=== PATIENT | female | born 1945 | race Caucasian/White ===

== ENCOUNTER 2020-12-18 09:02 | Emergency (ER) | payer MEDICARE, BC ==
[2020-12-18 09:47] VITALS: BP 149/93; PULSE 96
[2020-12-18] MEDS ORDERED: metroNIDAZOLE 500 MG Tab ONE ×2 (10:00→10:49)
--- NOTE | 2020-12-18 10:13 | EDM.PDOC ---
ED HPI GENERAL MEDICAL PROBLEM - General Chief Complaint: General Stated Complaint: loose stools Time Seen by Provider: 12/18/20 10:00 Source of Information: Reports: Patient History Limitations: Reports: No Limitations - History of Present Illness INITIAL COMMENTS - FREE TEXT/NARRATIVE: 75 year old female known patient of HTN ,rheumatoid arthritis , & hypercholesterolemia presented to ED this morning with c/o diarrhea.She reported that she had lower abdominal pain started at 4 o clock followed by 4 loose stools -The pain was dull ache ,3/10 ,located in lower abdomen & non radiating.The stools contains blood in it . denies any fever,N/V ,chest pain ,cough ,dizziness ,headache , Onset: Today, Sudden Onset Date: 12/18/20 Onset Time: 10:00 Duration: Hour(s): (7) Location: Reports: Abdomen Quality: Reports: Dull Improves with: Reports: None Worsens with: Reports: None Associated Symptoms: Reports: Other (loose stools mixed with blood ) Bilateral Lower Pelvic Pain Score (Numeric/FACES): 6 - Related Data Allergies Allergy/AdvReac Type Severity Reaction Status Date / Time Penicillins Allergy Rash Verified 12/18/20 09:19 Home Meds: Home Meds Melatonin 1 mg PO BEDTIME 11/20/14 [History] Simvastatin 20 mg PO DAILY 11/20/14 [History] Tocilizumab [Actemra] 500 mg IV Q30D 11/20/14 [History] Hydroxychloroquine Sulfate [Plaquenil] 200 mg PO BID 01/06/17 [History] Lisinopril/Hydrochlorothiazide [Lisinopril-Hctz 20-25 mg Tab] 1 each PO DAILY 05/15/19 [History] Oxybutynin Chloride [Ditropan Xl] 10 mg PO DAILY 05/15/19 [History] metroNIDAZOLE [metroNIDAZOLE 0.75% Cream] 1 applic TOP BID 05/15/19 [History] Past Medical History HEENT History: Reports: Impaired Vision Cardiovascular History: Reports: High Cholesterol, Hypertension Gastrointestinal History: Reports: Other (See Below) Other Gastrointestinal History: constipation Other Genitourinary History: none 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: Bladder suspension sx Sep 2016 Musculoskeletal History: Reports: Arthritis, Other (See Below) Other Musculoskeletal History: RA Immunologic History: Reports: Immunosuppression Other Immunologic History: Hx RA - Past Surgical History HEENT Surgical History: Reports: None Cardiovascular Surgical History: Reports: None GI Surgical History: Reports: None Female Surgical History: Reports: Other (See Below) Other Female Surgeries/Procedures: Prolapse uterus and bladder repair Musculoskeletal Surgical History: Reports: Other (See Below) Other Musculoskeletal Surgeries/Procedures:: hip replaced Dermatological Surgical History: Reports: None Social & Family History - Family History Family Medical History: No Pertinent Family History - Caffeine Use Caffeine Use: Reports: Coffee Other Caffeine Use: 2.5 cups a day - Recreational Drug Use Recreational Drug Use: No ED ROS GENERAL - Review of Systems Review Of Systems: See Below Constitutional: Reports: No Symptoms HEENT: Reports: No Symptoms Respiratory: Reports: No Symptoms. Denies: Shortness of Breath, Wheezing, Pleuritic Chest Pain Cardiovascular: Reports: No Symptoms Endocrine: Reports: No Symptoms GI/Abdominal: Reports: Abdominal Pain, Bloody Stool, Diarrhea Musculoskeletal: Reports: No Symptoms Skin: Reports: No Symptoms Neurological: Reports: No Symptoms ED EXAM, GENERAL - Physical Exam Exam: See Below Exam Limited By: No Limitations General Appearance: Alert, WD/WN Head: Atraumatic, Normocephalic Neck: Normal Inspection Respiratory/Chest: No Respiratory Distress Cardiovascular: Normal Peripheral Pulses GI/Abdominal: Normal Bowel Sounds, Soft, No Organomegaly, No Distention, No Abnormal Bruit, No Mass Back Exam: Normal Inspection Extremities: Normal Inspection Neurological: Alert, Oriented Course - Vital Signs Text/Narrative:: Vitals monitored labs ordered - I myself review labs K is low 3.1 advise the patient to discuss it with PCP if he can add some K Oral hydration - advise to to take a lot of fluids ,yogurt & banana patient was discharge on Flagyl 500 mg potid for two days . OTC Lomotil for tow days Pt was advised to come back to ER if diarrhea worsens - Last Recorded V/S: Last Vital Signs Temp 99.1 F 12/18/20 09:46 Pulse 96 12/18/20 09:46 Resp 18 12/18/20 09:46 BP 149/93 H 12/18/20 09:46 Pulse Ox 98 12/18/20 09:20 - Orders/Labs/Meds Orders: Active Orders 24 hr Category Date Time Status Hemoccult [Fecal Occult Blood Collection] [RC] Care 12/18/20 09:45 Active ASDIRECTED COMPREHENSIVE METABOLIC PN,CMP [CHEM] Stat Lab 12/18/20 09:44 Ordered UA RFX EDYTA AND CULT IF INDIC [URIN] Stat Lab 12/18/20 09:54 Ordered Departure - Departure Time of Disposition: 10:50 Disposition: Home, Self-Care 01 Clinical Impression: Bloody diarrhea - Discharge Information Referrals: PCP,None [Primary Care Provider] - Forms: ED Department Discharge, ED Summary Discharge Sepsis Event Note (ED) - Evaluation Sepsis Screening Result: No Definite Risk - Focused Exam Vital Signs: Vital Signs Temp Pulse Resp BP Pulse Ox 12/18/20 09:46 99.1 F 96 18 149/93 H 12/18/20 09:20 97.8 F 103 H 18 166/105 H 98 - Problem List & Annotations (1) Bloody diarrhea SNOMED Code(s): 67448576 Code(s): R19.7 - DIARRHEA, UNSPECIFIED Status: Acute Priority: Medium Current Visit: Yes Onset Date: ~12/18/20 (2) Lower abdominal pain SNOMED Code(s): 67476762 Code(s): R10.30 - LOWER ABDOMINAL PAIN, UNSPECIFIED Status: Acute Priority: Medium Current Visit: Yes Onset Date: ~12/18/20 - Assessment/Plan Plan: Drinks plenty of fluids take soft diet like banana ,yogurt Lomotil OTC Flagyl 500 mg potid for two days
== END 2020-12-18 10:50 | disposition home or self-care (01) ==
LOC: LB.ED 09:02
DX: R19.7 Diarrhea, unspecified (principal); E78.00 Pure hypercholesterolemia, unspecified; I10 Essential (primary) hypertension; Z79.899 Other long term (current) drug therapy; Z88.0 Allergy status to penicillin
CPT/HCPCS: 36415; 80053; 81001; 85025; 99283; A9270-GY

== ENCOUNTER 2021-06-24 12:11 | Emergency (ER) | payer MEDICARE, BC ==
[2021-06-24 13:41] VITALS: BP 149/85; PULSE 76
--- NOTE | 2021-06-24 14:25 | EDM.PDOC ---
ED HPI GENERAL MEDICAL PROBLEM - General Chief Complaint: General Stated Complaint: RIGHT LEG LACERATION Time Seen by Provider: 06/24/21 13:45 Source of Information: Reports: Patient History Limitations: Reports: No Limitations - History of Present Illness INITIAL COMMENTS - FREE TEXT/NARRATIVE: Patient presents to the emergency department with a laceration of her right anterior lower leg. Patient states that she was assisting her in pulling nails out of a fence line when the nail remover hit her anterior right grant providing laceration. Patient states she does not believe she would be able to care for this at home, it possibly requiring sutures. Patient denies any other injuries. States she has a medical history significant for rheumatoid arthritis and is on immune therapies for this. Currently be treated for cellulitis of right lower extremity through primary care clinic. Patient denies numbness or tingling distal to injury of right lower extremity. - Related Data Allergies Allergy/AdvReac Type Severity Reaction Status Date / Time Penicillins Allergy Rash Verified 03/28/21 10:27 Home Meds: Home Meds Melatonin 1 mg PO BEDTIME 11/20/14 [History] Simvastatin 20 mg PO DAILY 11/20/14 [History] Tocilizumab [Actemra] 500 mg IV Q30D 11/20/14 [History] Hydroxychloroquine Sulfate [Plaquenil] 200 mg PO BID 01/06/17 [History] Oxybutynin Chloride [Ditropan Xl] 10 mg PO DAILY 05/15/19 [History] metroNIDAZOLE [metroNIDAZOLE 0.75% Cream] 1 applic TOP BID 05/15/19 [History] Losartan [Cozaar] 25 mg PO DAILY 06/24/21 [History] hydroCHLOROthiazide [Hydrochlorothiazide] 25 mg PO DAILY 06/24/21 [History] Past Medical History HEENT History: Reports: Impaired Vision Cardiovascular History: Reports: High Cholesterol, Hypertension Gastrointestinal History: Reports: Other (See Below) Other Gastrointestinal History: constipation Other Genitourinary History: none 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: Bladder suspension sx Sep 2016 Musculoskeletal History: Reports: Arthritis, Other (See Below) Other Musculoskeletal History: RA Immunologic History: Reports: Immunosuppression Other Immunologic History: Hx RA - Past Surgical History HEENT Surgical History: Reports: None Cardiovascular Surgical History: Reports: None GI Surgical History: Reports: None Female Surgical History: Reports: Other (See Below) Other Female Surgeries/Procedures: Prolapse uterus and bladder repair Musculoskeletal Surgical History: Reports: Other (See Below) Other Musculoskeletal Surgeries/Procedures:: hip replaced Dermatological Surgical History: Reports: None Social & Family History - Family History Family Medical History: No Pertinent Family History - Tobacco Use Tobacco Use Status *Q: Never Tobacco User - Caffeine Use Caffeine Use: Reports: Coffee Other Caffeine Use: 2.5 cups a day ED ROS GENERAL - Review of Systems Review Of Systems: Comprehensive ROS is negative, except as noted in HPI. ED EXAM, GENERAL - Physical Exam Exam: See Below Exam Limited By: No Limitations General Appearance: Alert, WD/WN Respiratory/Chest: No Respiratory Distress, No Accessory Muscle Use Cardiovascular: Normal Peripheral Pulses, Regular Rate, Rhythm Peripheral Pulses: 2+: Posterior Tibial (L), Posterior Tibial (R) Extremities: Pedal Edema (Bilateral), Redness (Right lower extremity), Other (Laceration of anterior right lower leg) Neurological: Alert, Oriented, Normal Cognition, No Motor/Sensory Deficits Psychiatric: Normal Affect, Normal Mood Skin Exam: Warm, Dry, Intact ED GENERAL MEDICAL PROCEDURES - Laceration/Wound Repair Right Lower Midline Leg Lac/wound length in cm: 6 Appearance: Stellate ("v" shaped), Clean Anesthetic Type: Local Local Anesthesia - Lidocaine (Xylocaine): 0.5% with EPI Local Anesthetic Volume: 4cc Skin Prep: Chlorhexidine (Hibiciens) Exploration/Debridement/Repair: Wound Explored, In a Bloodless Field, Explored to Base, Minimal Debridement, No Foreign Material Found, Multiple Flaps Aligned Closed with: Sutures, Steri-Strips Suture Size: 5-0 # of Sutures: 13 (12 interrupted; 1 running suture) Suture Type: Nylon, Interrupted, Running Drain Placement: No Sterile Dressing Applied: Nurse Tetanus Status Addressed: Other (up to date 2018) Complications: No Progress/Comments: pt tolerated procedure well. Course - Vital Signs Last Recorded V/S: Last Vital Signs Temp 97.0 F 06/24/21 13:39 Pulse 76 06/24/21 13:39 Resp 16 06/24/21 13:39 BP 149/85 H 06/24/21 13:39 Pulse Ox 96 06/24/21 13:39 Departure - Departure Time of Disposition: 14:11 Disposition: Home, Self-Care 01 Condition: Good Clinical Impression: Leg laceration Qualifiers: Encounter type: initial encounter Laterality: right Qualified Code(s): S81.811A - Laceration without foreign body, right lower leg, initial encounter - Discharge Information *PRESCRIPTION DRUG MONITORING PROGRAM REVIEWED*: Not Applicable *COPY OF PRESCRIPTION DRUG MONITORING REPORT IN PATIENT KATELYNN: Not Applicable Instructions: Laceration Care, Adult Referrals: Miguel Evans MD [Primary Care Provider] - Forms: ED Department Discharge Care Plan Goals: Follow up in clinic 10-14 days for suture removal. watch for signs and symptoms of infection. Use tylenol as needed for pain Sepsis Event Note (ED) - Evaluation Sepsis Screening Result: No Definite Risk - Focused Exam Vital Signs: Vital Signs Temp Pulse Resp BP Pulse Ox 06/24/21 13:39 97.0 F 76 16 149/85 H 96 - Problem List & Annotations (1) Leg laceration SNOMED Code(s): 580318240 Code(s): S81.819A - LACERATION WITHOUT FOREIGN BODY, UNSP LOWER LEG, INIT ENCNTR Status: Acute Qualifiers: Encounter type: initial encounter Laterality: right Qualified Code(s): S81.811A - Laceration without foreign body, right lower leg, initial encounter - Problem List Review Problem List Initiated/Reviewed/Updated: Yes - Assessment/Plan Assessment:: leg laceration plan: suture removal in 10-14 days monitor for signs of infection elevate legs to reduce swelling
== END 2021-06-24 14:10 | disposition home or self-care (01) ==
LOC: LB.ED 12:11
DX: S81.811A Laceration without foreign body, right lower leg, initial encounter (principal); E78.00 Pure hypercholesterolemia, unspecified; I10 Essential (primary) hypertension; Z79.899 Other long term (current) drug therapy; Z88.0 Allergy status to penicillin; W45.0XXA Nail entering through skin, initial encounter
CPT/HCPCS: 12002; 99282-25

== ENCOUNTER 2021-09-19 09:39 | Emergency (ER) | payer MEDICARE, BC ==
--- NOTE | 2021-09-19 10:39 | EDM.PDOC ---
ED HPI GENERAL MEDICAL PROBLEM - General Stated Complaint: RIGHT HAND SKIN TEAR Time Seen by Provider: 09/19/21 10:25 Source of Information: Reports: Patient History Limitations: Reports: No Limitations - History of Present Illness INITIAL COMMENTS - FREE TEXT/NARRATIVE: This patient presents to the emergency department for evaluation of a skin tear. She was reaching into a chest freezer this morning when the lid closed on her. She has a large skin tear to her right wrist. She denies other injuries or concerns today. She is scheduled for a Port-A-Cath flush tomorrow and this will be done today while she is here. Onset: Today, Sudden - Related Data Allergies Allergy/AdvReac Type Severity Reaction Status Date / Time Penicillins Allergy Rash Verified 03/28/21 10:27 Home Meds: Home Meds Melatonin 1 mg PO BEDTIME 11/20/14 [History] Simvastatin 20 mg PO DAILY 11/20/14 [History] Tocilizumab [Actemra] 500 mg IV Q30D 11/20/14 [History] Hydroxychloroquine Sulfate [Plaquenil] 200 mg PO BID 01/06/17 [History] Oxybutynin Chloride [Ditropan Xl] 10 mg PO DAILY 05/15/19 [History] metroNIDAZOLE [metroNIDAZOLE 0.75% Cream] 1 applic TOP BID 05/15/19 [History] Losartan [Cozaar] 25 mg PO DAILY 06/24/21 [History] hydroCHLOROthiazide [Hydrochlorothiazide] 25 mg PO DAILY 06/24/21 [History] Past Medical History HEENT History: Reports: Impaired Vision Cardiovascular History: Reports: High Cholesterol, Hypertension Gastrointestinal History: Reports: Other (See Below) Other Gastrointestinal History: constipation Other Genitourinary History: none 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 2016 Musculoskeletal History: Reports: Arthritis, Other (See Below) Other Musculoskeletal History: RA Immunologic History: Reports: Immunosuppression Other Immunologic History: Hx RA - Past Surgical History HEENT Surgical History: Reports: None Cardiovascular Surgical History: Reports: None GI Surgical History: Reports: None Female Surgical History: Reports: Other (See Below) Other Female Surgeries/Procedures: Prolapse uterus and bladder repair Musculoskeletal Surgical History: Reports: Other (See Below) Other Musculoskeletal Surgeries/Procedures:: hip replaced Dermatological Surgical History: Reports: None Social & Family History - Family History Family Medical History: No Pertinent Family History - Caffeine Use Caffeine Use: Reports: Coffee Other Caffeine Use: 2.5 cups a day Review of Systems - Review of Systems Review Of Systems: Comprehensive ROS is negative, except as noted in HPI. ED EXAM, GENERAL - Physical Exam Exam: See Below Exam Limited By: No Limitations General Appearance: Alert, No Apparent Distress Eye Exam: Bilateral Eye: PERRL Ears: Normal External Exam Nose: Normal Inspection Head: Atraumatic, Normocephalic Neck: Normal Inspection, Supple, Non-Tender, Full Range of Motion Respiratory/Chest: No Respiratory Distress, No Accessory Muscle Use Extremities: Normal Inspection, Normal Range of Motion, Other (Right anterior wrist: 5 cm C-shaped skin tear. Bleeding is controlled. Distal CMS intact. No swelling, discoloration. Patient does have a mild deformity to her wrist related to arthritis; she notes this is unchanged today.) ED TRAUMA PROCEDURES - Laceration/Wound Repair Right Anterior Wrist Lac/Wound Length In cm: 5 Appearance: Superficial Distal NVT: Neuro & Vascular Intact Anesthetic Type: Other (None) Closed With: Steri-Strips (Steri-Strips applied after the application of benzoin. Nonadherent dressing applied.) Course - Re-Assessments/Exams Free Text/Narrative Re-Assessment/Exam: 09/19/21 10:37 This patient presents to the emergency department for evaluation of a skin tear. The wound was evaluated and explored. It was pulled together and held in place with Steri-Strips. A nonadherent dressing was applied and the wound was covered with Coban. She will follow-up with her primary care provider as needed. She is scheduled for a Port-A-Cath flush tomorrow this will be done in the emergency department today while she is here. Nursing will take care of this. Departure - Departure Time of Disposition: 11:00 Disposition: DC/Tfer to Hospice - Home 50 Clinical Impression: Skin tear, Port-A-Cath in place - Discharge Information Referrals: Miguel Evans MD [Primary Care Provider] -
[2021-09-19 16:17] VITALS: BP 159/98; PULSE 97
== END 2021-09-19 10:30 | disposition home or self-care (01) ==
LOC: LB.ED 09:39
DX: S61.511A Laceration without foreign body of right wrist, initial encounter (principal); E78.00 Pure hypercholesterolemia, unspecified; I10 Essential (primary) hypertension; Z88.0 Allergy status to penicillin; Z79.899 Other long term (current) drug therapy; Z95.828 Presence of other vascular implants and grafts; W26.8XXA Contact with other sharp object(s), not elsewhere classified, initial encounter
CPT/HCPCS: 99282; J1642

== ENCOUNTER 2022-03-23 08:39 | Emergency (ER) | payer MEDICARE, BC ==
[2022-03-23 10:34] VITALS: BP 156/101; PULSE 95
== END 2022-03-23 09:50 | disposition home or self-care (01) ==
LOC: LB.ED 08:39
DX: S41.112A Laceration without foreign body of left upper arm, initial encounter (principal); S41.111A Laceration without foreign body of right upper arm, initial encounter; S81.812A Laceration without foreign body, left lower leg, initial encounter; E78.00 Pure hypercholesterolemia, unspecified; I10 Essential (primary) hypertension; Z88.0 Allergy status to penicillin; Z79.899 Other long term (current) drug therapy; W19.XXXA Unspecified fall, initial encounter; Y92.009 Unspecified place in unspecified non-institutional (private) residence as the place of occurrence of the external cause
CPT/HCPCS: 36415; 80048; 85025; 99283

== ENCOUNTER 2022-06-16 07:15 | Emergency (ER) | payer MEDICARE, BC ==
[2022-06-16] MEDS: Ketorolac 30 MG/ML SDV IM ONE (07:59)
[2022-06-16] MEDS ORDERED: Ketorolac 30 MG/ML SDV ONE (08:04)
[2022-06-16 08:07] VITALS: BP 186/78; PULSE 78
[2022-06-16] MEDS: Morphine 2 MG/ML SYRINGE IVPUSH ONE (08:22)
[2022-06-16 08:25] LABS: ESTIMATED GFR 77 mL/min (>60)
[2022-06-16] MEDS ORDERED: Morphine 2 MG/ML SYRINGE ONE (08:29)
[2022-06-16] MEDS: Propofol 200 MG/20 ML SDV IVPUSH SCH ×4 (10:02→10:10)
[2022-06-16] MEDS ORDERED: Orphenadrine 60 MG/2 ML Inj ONE (10:52)
[2022-06-16] MEDS: Morphine 2 MG/ML SYRINGE IVPUSH PRN (11:14)
== END 2022-06-16 11:50 ==
LOC: LB.ED 07:19
DX: S73.005A Unspecified dislocation of left hip, initial encounter (principal); I10 Essential (primary) hypertension; Z88.0 Allergy status to penicillin; Z79.899 Other long term (current) drug therapy; X58.XXXA Exposure to other specified factors, initial encounter
CPT/HCPCS: 27265; 36415; 73501-LT; 73502-LT; 80048; 85025; 85379; 93005; 93010; 96372; 96374; 96376; 99283; 99284-25; A0425; A0429; J1885; J2270; J2704

== ENCOUNTER 2022-06-18 18:50 | Observation (INO) | payer MEDICARE, BC ==
[2022-06-18] MEDS: ceFAZolin 2 GM in Sodium Chloride 0.9% 100 ML IV SCH (20:00)
[2022-06-18] MEDS ORDERED: ceFAZolin 1 GM Vial ONE (20:02)
[2022-06-18] MEDS: HYDROXYCHLOROQUINE SULFATE 200 MG PO SCH (20:12)
[2022-06-18] MEDS: Acetaminophen/Codeine 300-30 MG Tab PO PRN (20:50)
[2022-06-18] MEDS: Non-Formulary Medication 1 Each (Melatonin [Melatonin] 1 MG Tablet) PO SCH (23:12)
[2022-06-18] MEDS ORDERED: Acetaminophen 325 MG Tab PO PRN (23:19)
[2022-06-19] MEDS: ceFAZolin 2 GM in Sodium Chloride 0.9% 100 ML IV SCH ×3 (03:34→19:15)
[2022-06-19] MEDS ORDERED: Non-Formulary Medication 1 Each (Simvastatin [Simvastatin] 20 MG Tablet) PO SCH (08:00)
[2022-06-19] MEDS ORDERED: Non-Formulary Medication 1 Each (Losartan [Cozaar] 25 MG Tablet) PO SCH (08:00)
[2022-06-19] MEDS ORDERED: Hydroxychloroquine 200 MG Tab PO SCH ×2 (08:00→10:00)
[2022-06-19] MEDS ORDERED: OXYBUTYNIN CHLORIDE 10 MG PO SCH (08:00)
[2022-06-19] MEDS ORDERED: Non-Formulary Medication 1 Each (Hydrochlorothiazide [Hydrochlorothiazide] 25 MG Tablet) PO SCH (08:00)
[2022-06-19] MEDS: Enoxaparin 40 MG/0.4 ML Syringe SUBCUT SCH (08:39)
[2022-06-19] MEDS: Losartan 25 MG Tab PO SCH (09:04)
[2022-06-19] MEDS: Hydrochlorothiazide 25 MG Tab PO SCH (09:05)
[2022-06-19] MEDS ORDERED: Potassium Chloride 20 MEQ Tab.ER PO ONE (09:07)
[2022-06-19] MEDS: HYDROXYCHLOROQUINE SULFATE 200 MG PO SCH (19:26)
[2022-06-19] MEDS ORDERED: Simvastatin 20 MG Tab PO SCH ×2 (20:00)
[2022-06-19] MEDS: Acetaminophen/Codeine 300-30 MG Tab PO PRN (21:02)
[2022-06-19] MEDS: Non-Formulary Medication 1 Each (Melatonin [Melatonin] 1 MG Tablet) PO SCH (21:38)
[2022-06-20] MEDS: ceFAZolin 2 GM in Sodium Chloride 0.9% 100 ML IV SCH ×2 (03:00→11:45)
[2022-06-20] MEDS: Enoxaparin 40 MG/0.4 ML Syringe SUBCUT SCH (07:44)
[2022-06-20] MEDS: Hydrochlorothiazide 25 MG Tab PO SCH (07:44)
[2022-06-20] MEDS: Losartan 25 MG Tab PO SCH (07:44)
[2022-06-20] MEDS ORDERED: Potassium Chloride 20 MEQ Tab.ER PO SCH (08:00)
[2022-06-20] MEDS ORDERED: Hydroxychloroquine 200 MG Tab PO SCH (09:15)
[2022-06-20 12:33] VITALS: BP 147/75; PULSE 87
== END 2022-06-20 13:32 | disposition home or self-care (01) ==
LOC: LB.ED 18:50 → LB.MS 19:22 → UNDOADMOB 20:20
PROVIDERS: ADMIT Physician Assistant; ATTEND Physician Assistant
DX: L03.113 Cellulitis of right upper limb (principal); I10 Essential (primary) hypertension; E78.00 Pure hypercholesterolemia, unspecified; M06.9 Rheumatoid arthritis, unspecified; E87.6 Hypokalemia; Z79.899 Other long term (current) drug therapy; Z88.0 Allergy status to penicillin; Z20.822 Contact with and (suspected) exposure to COVID-19
CPT/HCPCS: 36415; 80048; 83605; 85025; 85379; 86140; 96365; 96366; 96372; 96376; 99284-25; A0425; A0429; A9270-GY; G0378; J0690; J1650; J3490; U0002

== ENCOUNTER 2022-12-28 11:33 | Inpatient (IN) | payer MEDICARE, BC ==
[2022-12-28] MEDS ORDERED: ceFAZolin 2 GM in Sodium Chloride 0.9% 50 ML IV ONE (12:38)
[2022-12-28] MEDS ORDERED: cefTRIAXone 2 GM Vial ONE (12:52)
[2022-12-28] MEDS ORDERED: Lidocaine 1% with EPINEPHrine 1:100,000 50 ML MDV INJECT ONE (16:35)
[2022-12-28] MEDS: Melatonin 3 MG Tab PO SCH (20:35)
[2022-12-28] MEDS: Hydroxychloroquine 200 MG Tab PO SCH (20:35)
[2022-12-28] MEDS ORDERED: ceFAZolin 1 GM in Premix Bag 1 BAG IV SCH (22:00)
[2022-12-28] MEDS: ceFAZolin 1 GM in Sodium Chloride 0.9% 50 ML IV SCH (22:45)
[2022-12-29] MEDS: Ibuprofen 400 MG Tab PO PRN ×2 (00:17→20:46)
[2022-12-29] MEDS: ceFAZolin 1 GM in Sodium Chloride 0.9% 50 ML IV SCH ×3 (05:46→22:12)
[2022-12-29] MEDS: Losartan 25 MG Tab PO SCH (07:33)
[2022-12-29] MEDS: Simvastatin 20 MG Tab PO SCH (07:33)
[2022-12-29] MEDS: Hydrochlorothiazide 25 MG Tab PO SCH (07:33)
[2022-12-29] MEDS: Hydroxychloroquine 200 MG Tab PO SCH ×2 (07:34→20:46)
[2022-12-29] MEDS ORDERED: Labetalol 100 MG/20 ML MDV ONE (14:32)
[2022-12-29] MEDS: Melatonin 3 MG Tab PO SCH (20:46)
[2022-12-30] MEDS: ceFAZolin 1 GM in Sodium Chloride 0.9% 50 ML IV SCH ×3 (05:56→22:07)
[2022-12-30] MEDS: Hydrochlorothiazide 25 MG Tab PO SCH (08:19)
[2022-12-30] MEDS: Potassium Chloride 20 MEQ Tab.ER PO SCH ×2 (08:19→19:45)
[2022-12-30] MEDS: Losartan 25 MG Tab PO SCH (08:20)
[2022-12-30] MEDS: Hydroxychloroquine 200 MG Tab PO SCH ×2 (08:20→19:45)
[2022-12-30] MEDS: Simvastatin 20 MG Tab PO SCH (08:20)
[2022-12-30] MEDS ORDERED: Acetaminophen 325 MG Tab ONE (17:17)
[2022-12-30] MEDS: Lactobacillus Acidophilus/Lactobacillus Sporogenes (Probiotic) Tab PO SCH (19:45)
[2022-12-30] MEDS: Ibuprofen 400 MG Tab PO PRN (20:55)
[2022-12-30] MEDS: Melatonin 3 MG Tab PO SCH (20:55)
[2022-12-30] MEDS: Metoprolol Tartrate 25 MG Tab PO SCH (22:09)
[2022-12-31] MEDS: ceFAZolin 1 GM in Sodium Chloride 0.9% 50 ML IV SCH ×3 (06:06→22:07)
[2022-12-31] MEDS: Potassium Chloride 20 MEQ Tab.ER PO SCH ×2 (07:50→20:33)
[2022-12-31] MEDS: Hydroxychloroquine 200 MG Tab PO SCH ×2 (07:51→20:33)
[2022-12-31] MEDS: Lactobacillus Acidophilus/Lactobacillus Sporogenes (Probiotic) Tab PO SCH (07:51)
[2022-12-31] MEDS: Hydrochlorothiazide 25 MG Tab PO SCH (07:51)
[2022-12-31] MEDS: Losartan 25 MG Tab PO SCH (07:51)
[2022-12-31] MEDS: Simvastatin 20 MG Tab PO SCH (07:52)
[2022-12-31] MEDS: Metoprolol Tartrate 25 MG Tab PO SCH ×2 (09:06→22:08)
[2022-12-31] MEDS: Acetaminophen 325 MG Tab PO PRN ×2 (09:08→20:33)
[2022-12-31] MEDS: Melatonin 3 MG Tab PO SCH (20:33)
[2023-01-01] MEDS: ceFAZolin 1 GM in Sodium Chloride 0.9% 50 ML IV SCH ×3 (06:03→21:45)
[2023-01-01] MEDS: Hydroxychloroquine 200 MG Tab PO SCH ×2 (07:38→20:04)
[2023-01-01] MEDS: Losartan 25 MG Tab PO SCH ×2 (07:38→20:04)
[2023-01-01] MEDS: Hydrochlorothiazide 25 MG Tab PO SCH (07:38)
[2023-01-01] MEDS: Lactobacillus Acidophilus/Lactobacillus Sporogenes (Probiotic) Tab PO SCH (07:38)
[2023-01-01] MEDS: Simvastatin 20 MG Tab PO SCH (07:38)
[2023-01-01] MEDS: Metoprolol Tartrate 25 MG Tab PO SCH ×2 (09:25→21:40)
[2023-01-01] MEDS: Acetaminophen 325 MG Tab PO PRN ×2 (09:27→20:02)
[2023-01-01] MEDS ORDERED: Losartan 25 MG Tab PO STA (09:30)
[2023-01-01] MEDS ORDERED: Losartan 25 MG Tab ONE (10:07)
[2023-01-01] MEDS: Melatonin 3 MG Tab PO SCH (20:03)
[2023-01-02] MEDS: ceFAZolin 1 GM in Sodium Chloride 0.9% 50 ML IV SCH ×2 (05:01→12:56)
[2023-01-02] MEDS: Acetaminophen 325 MG Tab PO PRN ×2 (06:07→10:15)
[2023-01-02] MEDS: Hydrochlorothiazide 25 MG Tab PO SCH (07:10)
[2023-01-02] MEDS: Losartan 25 MG Tab PO SCH (07:10)
[2023-01-02] MEDS: Hydroxychloroquine 200 MG Tab PO SCH (07:10)
[2023-01-02] MEDS: Simvastatin 20 MG Tab PO SCH (07:10)
[2023-01-02] MEDS: Lactobacillus Acidophilus/Lactobacillus Sporogenes (Probiotic) Tab PO SCH (07:10)
[2023-01-02 09:38] VITALS: PULSE 81
[2023-01-02] MEDS: Metoprolol Tartrate 25 MG Tab PO SCH (09:38)
[2023-01-02] MEDS ORDERED: Lisinopril 5 MG Tab PO SCH (10:00)
[2023-01-02 10:17] VITALS: BP 170/87
== END 2023-01-02 13:25 | disposition home or self-care (01) | DRG 603 ==
LOC: LB.ED 11:33 → LB.MS 16:57
PROVIDERS: ADMIT Surgery; ATTEND Surgery
PROC: 0H9JXZZ Drainage of Left Upper Leg Skin, External Approach (ICD-10-PCS; principal; 2022-12-28)
DX: L03.116 Cellulitis of left lower limb (principal); D84.821 Immunodeficiency due to drugs; M06.9 Rheumatoid arthritis, unspecified; I10 Essential (primary) hypertension; Z20.822 Contact with and (suspected) exposure to COVID-19; L02.416 Cutaneous abscess of left lower limb; E78.5 Hyperlipidemia, unspecified; M79.81 Nontraumatic hematoma of soft tissue; Z96.642 Presence of left artificial hip joint; N32.81 Overactive bladder; Z98.49 Cataract extraction status, unspecified eye; Z90.710 Acquired absence of both cervix and uterus; Z88.0 Allergy status to penicillin; Z79.899 Other long term (current) drug therapy; M79.606 Pain in leg, unspecified; M79.605 Pain in left leg
CPT/HCPCS: 36415; 73562-LT; 80048; 80202; 83735; 84100; 85025; 85027; 85379; 85651; 86140; 87070; 93971-LT; 96365; 96366; 96367; 99222; 99232; 99239; 99284-25; 99285; A9270-GY; J0690; J1642; J3370; J3490; J7050; U0002

== ENCOUNTER 2023-01-05 10:59 | Emergency (ER) | payer MEDICARE, BC ==
[2023-01-05 12:29] VITALS: BP 144/76; PULSE 88
== END 2023-01-05 12:45 | disposition home or self-care (01) ==
LOC: LB.ED 10:59
DX: S01.01XA Laceration without foreign body of scalp, initial encounter (principal); S00.31XA Abrasion of nose, initial encounter; S80.212A Abrasion, left knee, initial encounter; S80.211A Abrasion, right knee, initial encounter; E78.00 Pure hypercholesterolemia, unspecified; I10 Essential (primary) hypertension; Z88.0 Allergy status to penicillin; Z79.899 Other long term (current) drug therapy; W01.0XXA Fall on same level from slipping, tripping and stumbling without subsequent striking against object, initial encounter
CPT/HCPCS: 12013; 70450; 99282; 99283

== ENCOUNTER 2023-01-18 12:16 | Emergency (ER) | payer MEDICARE, BC ==
[2023-01-18 12:55] VITALS: BP 154/71; PULSE 85
== END 2023-01-18 14:38 | disposition home or self-care (01) ==
LOC: LB.ED 12:16
DX: S81.811A Laceration without foreign body, right lower leg, initial encounter (principal); S51.812A Laceration without foreign body of left forearm, initial encounter; S51.811A Laceration without foreign body of right forearm, initial encounter; S81.011A Laceration without foreign body, right knee, initial encounter; S51.012A Laceration without foreign body of left elbow, initial encounter; E78.00 Pure hypercholesterolemia, unspecified; I10 Essential (primary) hypertension; Z79.899 Other long term (current) drug therapy; Z88.0 Allergy status to penicillin; Y92.000 Kitchen of unspecified non-institutional (private) residence as the place of occurrence of the external cause
CPT/HCPCS: 12002; 99282

== ENCOUNTER 2025-03-01 12:25 | Emergency (ER) | payer MEDICARE, BC ==
[2025-03-01 13:32] LABS: HEMOGLOBIN 15.3 g/dL (11.5-16.5); MEAN CORPUSCULAR HEMOGLOBIN 32.6 pg (27.0-32.0); MEAN PLATELET VOLUME 9.2 fL (6.0-10.0); RED BLOOD CELL COUNT 4.69 M/uL (3.80-5.80); RED CELL DISTRIBUTION WIDTH 12.6 % (11.0-16.0)
[2025-03-01 13:34] LABS: WHITE BLOOD CELL COUNT,WBC 27.7 K/uL (4.0-11.0)
[2025-03-01 13:50] LABS: ANION GAP 10.9 mmol/L (5.0-15.0); BLOOD UREA NITROGEN,BUN 26 mg/dL (8-26); CARBON DIOXIDE,CO2 28.4 mmol/L (21.0-32.0); CHLORIDE,CL 105 mmol/L (98-107); EST CRCL DRUG DOSING (CG) 34.75 mL/min; ESTIMATED GFR 57 mL/min (>60); GLUCOSE RANDOM 203 mg/dL (74-100); POTASSIUM,K 4.3 mmol/L (3.5-5.1); PRO B-TYPE NATRIUR PEPT,BNPPRO 400 pg/mL (0-450); SODIUM,NA 140 mmol/L (136-145)
[2025-03-01 13:58] LABS: C-REACTIVE PROTEIN < 5.0 mg/L (<5.0)
[2025-03-01 14:01] VITALS: BP 138/69; PULSE 84
[2025-03-01] MEDS: Furosemide 20 MG Tab PO ONE (14:11)
== END 2025-03-01 14:18 | disposition home or self-care (01) ==
LOC: LB.ED 12:25
DX: R60.0 Localized edema (principal); I10 Essential (primary) hypertension; E78.00 Pure hypercholesterolemia, unspecified; Z88.0 Allergy status to penicillin; Z79.899 Other long term (current) drug therapy
CPT/HCPCS: 36415; 80048; 83880; 85027; 86140; 99283; A9270

== ENCOUNTER 2025-03-08 09:13 | Emergency (ER) | payer MEDICARE, BC ==
[2025-03-08 10:33] LABS: BASOPHILS ABSOLUTE AUTO 0.02 K/uL (0.02-0.10); BASOPHILS PERCENT AUTO 0.1 % (0.0-0.5); EOSINOPHILS ABSOLUTE AUTO 0.01 K/uL (0.04-0.40); EOSINOPHILS PERCENT AUTO 0.1 % (1.0-5.0); HEMATOCRIT 41.5 % (37.0-47.0); HEMOGLOBIN 14.2 g/dL (11.5-16.5); MEAN CORPUSCULAR HEMOGLOBIN 32.4 pg (27.0-32.0); MEAN CORPUSCULAR HGB CONC 34.2 g/dL (31.0-35.0); MEAN CORPUSCULAR VOLUME 95 fL (76-96); MEAN PLATELET VOLUME 9.4 fL (6.0-10.0); MONOCYTES ABSOLUTE AUTO 0.97 K/uL (0.20-0.80); MONOCYTES PERCENT AUTO 4.9 % (3.0-10.0); NEUTROPHILS ABSOLUTE AUTO 18.47 K/uL (2.00-7.50); NEUTROPHILS PERCENT AUTO 92.9 % (45.0-70.0); PLATELET COUNT,PLT 299 K/uL (150-500); RED BLOOD CELL COUNT 4.38 M/uL (3.80-5.80); RED CELL DISTRIBUTION WIDTH 12.8 % (11.0-16.0); WHITE BLOOD CELL COUNT,WBC 19.9 K/uL (4.0-11.0)
[2025-03-08 10:58] LABS: ALBUMIN 2.8 g/dL (3.4-5.0); ANION GAP 12.8 mmol/L (5.0-15.0); BILIRUBIN TOTAL 0.6 mg/dL (0.0-1.0); BUN/CREATININE RATIO 38.1 (6-25); CALCIUM 9.9 mg/dL (8.5-10.1); CARBON DIOXIDE,CO2 24.9 mmol/L (21.0-32.0); CREATININE 1.18 mg/dL (0.55-1.02); EST CRCL DRUG DOSING (CG) 29.45 mL/min; POTASSIUM,K 3.7 mmol/L (3.5-5.1); PROTEIN TOTAL,TP 5.7 g/dL (6.4-8.2)
[2025-03-08] MEDS ORDERED: Cephalexin 500 MG Cap ONE (11:00)
[2025-03-08 11:54] VITALS: BP 135/78; PULSE 94
== END 2025-03-08 11:42 | disposition home or self-care (01) ==
LOC: LB.ED 09:13
DX: L03.113 Cellulitis of right upper limb (principal); R60.0 Localized edema; R53.1 Weakness; L97.903 Non-pressure chronic ulcer of unspecified part of unspecified lower leg with necrosis of muscle; I10 Essential (primary) hypertension; Z88.0 Allergy status to penicillin; Z79.899 Other long term (current) drug therapy
CPT/HCPCS: 36415; 80053; 85025; 99284; A9270-GY

== ENCOUNTER 2025-04-03 10:48 | Emergency (ER) | payer MEDICARE, BC ==
[2025-04-03 12:07] LABS: BASOPHILS ABSOLUTE AUTO 0.02 K/uL (0.02-0.10); BASOPHILS PERCENT AUTO 0.2 % (0.0-0.5); EOSINOPHILS ABSOLUTE AUTO 0.04 K/uL (0.04-0.40); EOSINOPHILS PERCENT AUTO 0.4 % (1.0-5.0); HEMATOCRIT 37.9 % (37.0-47.0); LYMPHOCYTES ABSOLUTE AUTO 0.81 K/uL (1.50-4.00); LYMPHOCYTES PERCENT AUTO 8.9 % (20.0-40.0); MEAN CORPUSCULAR HEMOGLOBIN 32.6 pg (27.0-32.0); MEAN CORPUSCULAR HGB CONC 34.3 g/dL (31.0-35.0); MEAN CORPUSCULAR VOLUME 95 fL (76-96); MEAN PLATELET VOLUME 9.1 fL (6.0-10.0); MONOCYTES PERCENT AUTO 9.9 % (3.0-10.0); NEUTROPHILS ABSOLUTE AUTO 7.33 K/uL (2.00-7.50); NEUTROPHILS PERCENT AUTO 80.6 % (45.0-70.0); PLATELET COUNT,PLT 254 K/uL (150-500); RED BLOOD CELL COUNT 3.99 M/uL (3.80-5.80); RED CELL DISTRIBUTION WIDTH 13.9 % (11.0-16.0); WHITE BLOOD CELL COUNT,WBC 9.1 K/uL (4.0-11.0)
[2025-04-03 12:15] LABS: PH,VENOUS 7.49 (7.31-7.41)
[2025-04-03 12:16] LABS: BASE EXCESS VENOUS 7.9 mm/L (-2-3); BICARBONATE,VENOUS 31.3 mmol/L (23.0-28.0); PCO2 VENOUS 41.6 mm/Hg (41-51)
[2025-04-03 12:41] LABS: APPEARANCE,URINE CLOUDY (CLEAR); COLOR,URINE YELLOW; GLUCOSE,URINE NEGATIVE (NEGATIVE); KETONES,URINE NEGATIVE (NEGATIVE); PH,URINE 6.5 (5.0-8.0); PROTEIN,URINE NEGATIVE (NEGATIVE)
[2025-04-03 12:42] LABS: ALBUMIN 3.4 g/dL (3.4-5.0); ANION GAP 12.9 mmol/L (5.0-15.0); BILIRUBIN,URINE NEGATIVE (NEGATIVE); LEUKOCYTE ESTERASE,URINE SMALL (NEGATIVE); MAGNESIUM 1.8 mg/dL (1.8-2.4); NITRITE,URINE POSITIVE (NEGATIVE); OCCULT BLOOD,URINE NEGATIVE (NEGATIVE); RBC,URINE 0-5 /HPF; UROBILINOGEN,URINE 0.2 E.U./dL (0.2-1.0)
[2025-04-03 12:43] LABS: BACTERIA,URINE MANY /HPF; SQUAMOUS EPITHELIAL CELLS,UR OCCASIONAL /HPF; WBC,URINE 20-30 /HPF
[2025-04-03 12:44] LABS: A/G RATIO 1.1 (0.8-2.0); BILIRUBIN TOTAL 0.6 mg/dL (0.0-1.0); BUN/CREATININE RATIO 29.9 (6-25); CALCIUM 10.6 mg/dL (8.5-10.1); CARBON DIOXIDE,CO2 29.5 mmol/L (21.0-32.0); CREATININE 1.17 mg/dL (0.55-1.02); EST CRCL DRUG DOSING (CG) 31.19 mL/min; POTASSIUM,K 4.4 mmol/L (3.5-5.1); PROTEIN TOTAL,TP 6.4 g/dL (6.4-8.2); TROPONIN I HIGH SENSITIVITY 15.6 pg/ml (<=60.4)
[2025-04-03] MEDS ORDERED: Sodium Chloride 0.9% 10 ML Syringe FLUSH PRN (12:57)
[2025-04-03] MEDS: Sodium Chloride 0.9% 50 ML SDV FLUSH ONE (13:32)
[2025-04-03] MEDS: Iopamidol 755 Mg/ML 100 ML Bottle IV SCH (13:32)
[2025-04-03] MEDS: Sodium Chloride 0.9% 500 ML IV ONE (13:59)
[2025-04-03] MEDS: Isosorbide Mononitrate 30 MG Tab.ER PO ONE (16:06)
[2025-04-03] MEDS: Enoxaparin 40 MG/0.4 ML Syringe SUBCUT ONE ×2 (16:07→21:41)
[2025-04-03 21:31] VITALS: BP 136/69; PULSE 77
[2025-04-03] MEDS: Apixaban 5 MG Tab PO ONE (21:41)
== END 2025-04-03 16:53 | disposition home or self-care (01) ==
LOC: LB.ED 10:48
DX: R06.02 Shortness of breath (principal); R60.0 Localized edema; I10 Essential (primary) hypertension; E78.00 Pure hypercholesterolemia, unspecified; Z90.710 Acquired absence of both cervix and uterus; Z79.899 Other long term (current) drug therapy; Z88.0 Allergy status to penicillin
CPT/HCPCS: 36415; 71046; 71260; 80053; 81001; 82803; 83735; 83880; 84484; 85025; 85379; 87086; 93005; 96372; 99285-25; A9270-GY; J1650; J3490; J7040; Q9967

== ENCOUNTER 2025-05-08 16:29 | Inpatient (IN) | payer MEDICARE, BC ==
[2025-05-08] MEDS ORDERED: Sodium Chloride 0.9% 10 ML Syringe FLUSH PRN (17:07)
[2025-05-08] MEDS: Sodium Chloride 0.9% 1,000 ML IV SCH ×2 (17:14→22:20)
[2025-05-08] MEDS ORDERED: Sodium Chloride 23.4% 154 MEQ in Dextrose 10% in Water 1,000 ML IV SCH (17:30)
[2025-05-08] MEDS ORDERED: Glucagon,Human Recombinant 1 MG Vial IM PRN (17:31)
[2025-05-08] MEDS ORDERED: 50% Dextrose in Water 50 ML Syringe IVPUSH PRN (17:31)
[2025-05-08] MEDS: Sodium Polystyrene Sulfonate 15 GM/60 ML Susp 60 ML Bot PO ONE (17:38)
[2025-05-08] MEDS ORDERED: 50% Dextrose in Water 50 ML Syringe PRN (17:51)
[2025-05-08] MEDS: Insulin Regular, Human 100 Units/ML 10 ML Vial IV ONE (18:58)
[2025-05-08] MEDS: 50% Dextrose in Water 50 ML Syringe IVPUSH ONE (20:20)
[2025-05-08] MEDS ORDERED: Acetaminophen 325 MG Tab PO PRN (21:43)
[2025-05-08] MEDS ORDERED: DICLOFENAC SODIUM TOP PRN (21:43)
[2025-05-08] MEDS ORDERED: Ibuprofen 400 MG Tab PO PRN (21:49)
[2025-05-08 22:39] LABS: EOSINOPHILS ABSOLUTE AUTO 0.01 K/uL (0.04-0.40); EOSINOPHILS PERCENT AUTO 0.1 % (1.0-5.0); HEMATOCRIT 29.4 % (37.0-47.0); HEMOGLOBIN 9.5 g/dL (11.5-16.5); LYMPHOCYTES ABSOLUTE AUTO 0.51 K/uL (1.50-4.00); LYMPHOCYTES PERCENT AUTO 4.2 % (20.0-40.0); MEAN CORPUSCULAR HEMOGLOBIN 31.8 pg (27.0-32.0); MEAN CORPUSCULAR HGB CONC 32.3 g/dL (31.0-35.0); MEAN CORPUSCULAR VOLUME 98 fL (76-96); MONOCYTES ABSOLUTE AUTO 0.69 K/uL (0.20-0.80); MONOCYTES PERCENT AUTO 5.7 % (3.0-10.0); NEUTROPHILS ABSOLUTE AUTO 10.89 K/uL (2.00-7.50); PLATELET COUNT,PLT 303 K/uL (150-500); RED BLOOD CELL COUNT 2.99 M/uL (3.80-5.80); RED CELL DISTRIBUTION WIDTH 13.9 % (11.0-16.0); WHITE BLOOD CELL COUNT,WBC 12.1 K/uL (4.0-11.0)
[2025-05-08 22:43] LABS: APPEARANCE,URINE CLEAR (CLEAR); BILIRUBIN,URINE NEGATIVE (NEGATIVE); COLOR,URINE YELLOW; GLUCOSE,URINE NEGATIVE (NEGATIVE); KETONES,URINE NEGATIVE (NEGATIVE); LEUKOCYTE ESTERASE,URINE NEGATIVE (NEGATIVE); NITRITE,URINE NEGATIVE (NEGATIVE); OCCULT BLOOD,URINE NEGATIVE (NEGATIVE); PROTEIN,URINE NEGATIVE (NEGATIVE); UROBILINOGEN,URINE 0.2 E.U./dL (0.2-1.0)
[2025-05-08 22:52] LABS: ANION GAP 15.4 mmol/L (5.0-15.0); BUN/CREATININE RATIO 27.7 (6-25); CARBON DIOXIDE,CO2 18.3 mmol/L (21.0-32.0); CREATININE 2.31 mg/dL (0.55-1.02); EST CRCL DRUG DOSING (CG) 14.44 mL/min; POTASSIUM,K 5.7 mmol/L (3.5-5.1)
[2025-05-09] MEDS: Sodium Polystyrene Sulfonate 15 GM/60 ML Susp 60 ML Bot PO ONE (00:19)
[2025-05-09] MEDS: Albuterol 6.7 GM Inhaler INH SCH (01:05)
[2025-05-09] MEDS: Hydroxychloroquine 200 MG Tab PO SCH ×2 (01:06→09:03)
[2025-05-09] MEDS ORDERED: Albuterol 6.7 GM Inhaler INH PRN (07:58)
[2025-05-09] MEDS: Furosemide 20 MG Tab PO SCH (08:05)
[2025-05-09 08:42] LABS: BASOPHILS ABSOLUTE AUTO 0.01 K/uL (0.02-0.10); BASOPHILS PERCENT AUTO 0.1 % (0.0-0.5); EOSINOPHILS ABSOLUTE AUTO 0.04 K/uL (0.04-0.40); EOSINOPHILS PERCENT AUTO 0.3 % (1.0-5.0); HEMATOCRIT 30.7 % (37.0-47.0); LYMPHOCYTES ABSOLUTE AUTO 0.52 K/uL (1.50-4.00); LYMPHOCYTES PERCENT AUTO 3.3 % (20.0-40.0); MEAN CORPUSCULAR HEMOGLOBIN 31.9 pg (27.0-32.0); MEAN CORPUSCULAR HGB CONC 32.6 g/dL (31.0-35.0); MEAN CORPUSCULAR VOLUME 98 fL (76-96); MONOCYTES ABSOLUTE AUTO 0.66 K/uL (0.20-0.80); MONOCYTES PERCENT AUTO 4.1 % (3.0-10.0); NEUTROPHILS ABSOLUTE AUTO 14.77 K/uL (2.00-7.50); NEUTROPHILS PERCENT AUTO 92.2 % (45.0-70.0); PLATELET COUNT,PLT 331 K/uL (150-500); RED BLOOD CELL COUNT 3.13 M/uL (3.80-5.80); RED CELL DISTRIBUTION WIDTH 14.1 % (11.0-16.0)
[2025-05-09 08:44] LABS: BUN/CREATININE RATIO 30.2 (6-25); CREATININE 1.62 mg/dL (0.55-1.02); EST CRCL DRUG DOSING (CG) 20.59 mL/min
[2025-05-09] MEDS: cefTRIAXone 1 GM in Sodium Chloride 0.9% 50 ML IV SCH (11:54)
[2025-05-09] MEDS: Melatonin 3 MG Tab PO SCH (19:37)
[2025-05-10 08:50] LABS: BASOPHILS ABSOLUTE AUTO 0.01 K/uL (0.02-0.10); BASOPHILS PERCENT AUTO 0.1 % (0.0-0.5); EOSINOPHILS ABSOLUTE AUTO 0.05 K/uL (0.04-0.40); EOSINOPHILS PERCENT AUTO 0.4 % (1.0-5.0); HEMATOCRIT 29.4 % (37.0-47.0); HEMOGLOBIN 9.5 g/dL (11.5-16.5); LYMPHOCYTES ABSOLUTE AUTO 0.81 K/uL (1.50-4.00); LYMPHOCYTES PERCENT AUTO 6.7 % (20.0-40.0); MEAN CORPUSCULAR HEMOGLOBIN 32.2 pg (27.0-32.0); MEAN CORPUSCULAR HGB CONC 32.3 g/dL (31.0-35.0); MEAN CORPUSCULAR VOLUME 100 fL (76-96); MEAN PLATELET VOLUME 8.9 fL (6.0-10.0); MONOCYTES PERCENT AUTO 4.1 % (3.0-10.0); NEUTROPHILS ABSOLUTE AUTO 10.77 K/uL (2.00-7.50); NEUTROPHILS PERCENT AUTO 88.7 % (45.0-70.0); PLATELET COUNT,PLT 288 K/uL (150-500); RED BLOOD CELL COUNT 2.95 M/uL (3.80-5.80); RED CELL DISTRIBUTION WIDTH 14.1 % (11.0-16.0); WHITE BLOOD CELL COUNT,WBC 12.1 K/uL (4.0-11.0)
[2025-05-10 09:06] LABS: ANION GAP 10.6 mmol/L (5.0-15.0); CARBON DIOXIDE,CO2 20.9 mmol/L (21.0-32.0); CREATININE 0.87 mg/dL (0.55-1.02); EST CRCL DRUG DOSING (CG) 38.35 mL/min; POTASSIUM,K 3.5 mmol/L (3.5-5.1)
[2025-05-10 09:12] LABS: BUN/CREATININE RATIO 27.6 (6-25)
[2025-05-10] MEDS: Hydroxychloroquine 200 MG Tab PO SCH (09:13)
[2025-05-10] MEDS: Potassium Chloride 20 MEQ Tab.ER PO ONE (11:41)
[2025-05-11 08:41] LABS: BASOPHILS ABSOLUTE AUTO 0.01 K/uL (0.02-0.10); BASOPHILS PERCENT AUTO 0.1 % (0.0-0.5); EOSINOPHILS ABSOLUTE AUTO 0.05 K/uL (0.04-0.40); EOSINOPHILS PERCENT AUTO 0.4 % (1.0-5.0); HEMATOCRIT 28.9 % (37.0-47.0); HEMOGLOBIN 9.7 g/dL (11.5-16.5); LYMPHOCYTES PERCENT AUTO 6.3 % (20.0-40.0); MEAN CORPUSCULAR HEMOGLOBIN 32.6 pg (27.0-32.0); MEAN CORPUSCULAR HGB CONC 33.6 g/dL (31.0-35.0); MEAN CORPUSCULAR VOLUME 97 fL (76-96); MEAN PLATELET VOLUME 8.9 fL (6.0-10.0); MONOCYTES PERCENT AUTO 3.2 % (3.0-10.0); NEUTROPHILS ABSOLUTE AUTO 11.37 K/uL (2.00-7.50); PLATELET COUNT,PLT 309 K/uL (150-500); RED BLOOD CELL COUNT 2.98 M/uL (3.80-5.80); RED CELL DISTRIBUTION WIDTH 13.9 % (11.0-16.0); WHITE BLOOD CELL COUNT,WBC 12.6 K/uL (4.0-11.0)
[2025-05-11 08:54] LABS: ANION GAP 14.3 mmol/L (5.0-15.0); BUN/CREATININE RATIO 22.4 (6-25); CALCIUM 8.7 mg/dL (8.5-10.1); CARBON DIOXIDE,CO2 18.4 mmol/L (21.0-32.0); CREATININE 0.67 mg/dL (0.55-1.02); EST CRCL DRUG DOSING (CG) 49.8 mL/min; POTASSIUM,K 3.7 mmol/L (3.5-5.1)
[2025-05-11] MEDS: Potassium Chloride 10 MEQ Tab.ER PO SCH (09:21)
[2025-05-11] MEDS: Lactobacillus Acidophilus/Lactobacillus Sporogenes (Probiotic) Tab PO SCH (12:50)
[2025-05-11] MEDS: Acetaminophen/HYDROcodone 325-5 MG Tab PO PRN (15:23)
[2025-05-12 14:14] VITALS: BP 130/76; PULSE 80
[2025-05-13] MEDS ORDERED: Rivaroxaban 10 MG Tab PO SCH (08:00)
== END 2025-05-12 12:25 | disposition swing bed (61) | DRG 683 ==
LOC: LB.ED 16:29 → UNDOADMOB 19:07 → LB.MS 19:07 → UNDOADMOB 05-09 10:12 → LB.MS 05-09 10:12 → UNDOADMOB 05-09 11:45 → INTOOBSV 05-09 14:15 → OBSVTOIN 05-09 14:15
PROVIDERS: ADMIT Family Medicine; ATTEND Family Medicine
DX: E87.5 Hyperkalemia (principal); I82.503 Chronic embolism and thrombosis of unspecified deep veins of lower extremity, bilateral; N39.0 Urinary tract infection, site not specified; Z66 Do not resuscitate; N17.9 Acute kidney failure, unspecified; E86.0 Dehydration; H54.7 Unspecified visual loss; E78.00 Pure hypercholesterolemia, unspecified; I10 Essential (primary) hypertension; K59.09 Other constipation; M54.9 Dorsalgia, unspecified; G89.29 Other chronic pain; M06.9 Rheumatoid arthritis, unspecified; Z88.0 Allergy status to penicillin; Z98.49 Cataract extraction status, unspecified eye; Z79.899 Other long term (current) drug therapy; Z79.01 Long term (current) use of anticoagulants; Z90.710 Acquired absence of both cervix and uterus; Z98.890 Other specified postprocedural states; Z96.649 Presence of unspecified artificial hip joint; Z79.51 Long term (current) use of inhaled steroids
CPT/HCPCS: 36415 ×3; 71046; 80048 ×2; 80053; 81003; 82533; 82550; 82947 ×14; 83036; 83605 ×3; 83880; 84145; 84146; 84443; 85025 ×3; 85379 ×3; 85610; 85651; 86141; 87040 ×2; 93005; 96361 ×3; 96374; 99222; 99285; A9270 ×5; G0378 ×3; J0696; J7030 ×4; 36591; 93010; 97162-GP; 99232; 99233

== ENCOUNTER 2025-05-12 12:31 | Inpatient (IN) | payer MEDICARE, BC ==
[2025-05-12] MEDS ORDERED: DICLOFENAC SODIUM TOP PRN (14:45)
[2025-05-12] MEDS ORDERED: ALBUTEROL 2 MG/5 ML INH SCH (14:45)
[2025-05-12] MEDS ORDERED: Tocilizumab 400 MG/20 ML SDV IV SCH (14:45)
[2025-05-12] MEDS ORDERED: Hydroxychloroquine 200 MG Tab PO SCH (14:45)
[2025-05-12] MEDS ORDERED: Trolamine Salicylate/Aloe Vera 10% Crm 85 GM Tube TOP PRN (16:44)
[2025-05-12] MEDS: Metoprolol Tartrate 25 MG Tab PO SCH (19:38)
[2025-05-12] MEDS: Acetaminophen/HYDROcodone 325-5 MG Tab PO PRN (19:38)
[2025-05-12] MEDS: Melatonin 3 MG Tab PO SCH (19:39)
[2025-05-13] MEDS ORDERED: [UNRECOGNIZED DRUG - OTHER] PO SCH (08:00)
[2025-05-13] MEDS ORDERED: Lisinopril 5 MG Tab PO SCH (08:00)
[2025-05-13] MEDS ORDERED: CALCIUM CARBONATE PO SCH (08:00)
[2025-05-13] MEDS ORDERED: Non-Formulary Medication 1 Each (Rivaroxaban [Xarelto] 20 MG Tablet) PO SCH (08:00)
[2025-05-13] MEDS ORDERED: Potassium Chloride 20 MEQ Tab.ER PO SCH (08:00)
[2025-05-13] MEDS ORDERED: VITAMIN D3 PO SCH (08:00)
[2025-05-13] MEDS: Furosemide 20 MG Tab PO SCH (08:40)
[2025-05-13] MEDS: Rivaroxaban 10 MG Tab PO SCH (08:41)
[2025-05-13] MEDS: Calcium Carbonate/Vitamin D3 1500 MG-400 Units Tab PO SCH (08:42)
[2025-05-13] MEDS: Potassium Chloride 10 MEQ Tab.ER PO SCH (08:42)
[2025-05-13] MEDS: Lisinopril 20 MG Tab PO SCH (08:43)
[2025-05-13] MEDS: Magnesium Hydroxide 400 MG/5 ML Susp 30 ML Cup PO SCH (08:44)
[2025-05-13] MEDS: Acetaminophen 325 MG Tab PO PRN (19:16)
[2025-05-14] MEDS: Tuberculin, PPD 5 Units/0.1 ML 1 ML MDV IDERM ONE (11:18)
[2025-05-15 08:16] LABS: BASOPHILS ABSOLUTE AUTO 0.02 K/uL (0.02-0.10); BASOPHILS PERCENT AUTO 0.2 % (0.0-0.5); EOSINOPHILS ABSOLUTE AUTO 0.08 K/uL (0.04-0.40); HEMATOCRIT 33.5 % (37.0-47.0); HEMOGLOBIN 10.8 g/dL (11.5-16.5); LYMPHOCYTES ABSOLUTE AUTO 1.07 K/uL (1.50-4.00); LYMPHOCYTES PERCENT AUTO 12.8 % (20.0-40.0); MEAN CORPUSCULAR HEMOGLOBIN 31.7 pg (27.0-32.0); MEAN CORPUSCULAR HGB CONC 32.2 g/dL (31.0-35.0); MEAN CORPUSCULAR VOLUME 98 fL (76-96); MEAN PLATELET VOLUME 8.4 fL (6.0-10.0); MONOCYTES ABSOLUTE AUTO 0.75 K/uL (0.20-0.80); NEUTROPHILS ABSOLUTE AUTO 6.45 K/uL (2.00-7.50); PLATELET COUNT,PLT 390 K/uL (150-500); RED BLOOD CELL COUNT 3.41 M/uL (3.80-5.80); RED CELL DISTRIBUTION WIDTH 14.9 % (11.0-16.0); WHITE BLOOD CELL COUNT,WBC 8.4 K/uL (4.0-11.0)
[2025-05-15 08:30] LABS: BLOOD UREA NITROGEN,BUN 12 mg/dL (8-26); BUN/CREATININE RATIO 17.4 (6-25); CALCIUM 9.3 mg/dL (8.5-10.1); CARBON DIOXIDE,CO2 28.2 mmol/L (21.0-32.0); CHLORIDE,CL 105 mmol/L (98-107); CREATININE 0.69 mg/dL (0.55-1.02); ESTIMATED GFR 87 mL/min (>60); GLUCOSE RANDOM 118 mg/dL (74-100); POTASSIUM,K 4.2 mmol/L (3.5-5.1); SODIUM,NA 137 mmol/L (136-145)
[2025-05-15] MEDS: valACYclovir 500 MG Tab PO SCH (19:37)
[2025-05-17 07:57] VITALS: BP 107/66; PULSE 107
[2025-05-17 12:19] LABS: APPEARANCE,URINE CLEAR (CLEAR); BILIRUBIN,URINE NEGATIVE (NEGATIVE); COLOR,URINE YELLOW; GLUCOSE,URINE NEGATIVE (NEGATIVE); KETONES,URINE NEGATIVE (NEGATIVE); LEUKOCYTE ESTERASE,URINE TRACE (NEGATIVE); NITRITE,URINE NEGATIVE (NEGATIVE); OCCULT BLOOD,URINE NEGATIVE (NEGATIVE); PH,URINE 6.5 (5.0-8.0); PROTEIN,URINE NEGATIVE (NEGATIVE); UROBILINOGEN,URINE 0.2 E.U./dL (0.2-1.0)
[2025-05-17 12:27] LABS: EPITHELIAL CELLS,URINE RARE /HPF; RBC,URINE 0-5 /HPF; WBC,URINE 0-5 /HPF
[2025-05-17] MEDS: Ibuprofen 400 MG Tab PO PRN (13:27)
[2025-05-17] MEDS: Sodium Chloride 0.9% 50 ML SDV FLUSH ONE (14:24)
[2025-05-17] MEDS: Iopamidol 612 MG/ML 100 ML Bottle IV SCH (14:24)
[2025-05-17] MEDS: Meropenem 1 GM in Sodium Chloride 0.9% 100 ML IV SCH (15:51)
[2025-05-17] MEDS: Sodium Chloride 0.9% 1,000 ML IV SCH (15:51)
[2025-05-18] MEDS ORDERED: Lactobacillus Acidophilus/Lactobacillus Sporogenes (Probiotic) Tab PO SCH (08:00)
== END 2025-05-17 17:10 | DRG 948 ==
LOC: LB.MS 14:32
PROVIDERS: ADMIT Family Medicine; ATTEND Family Medicine
DX: R53.81 Other malaise (principal); I82.4Z3 Acute embolism and thrombosis of unspecified deep veins of distal lower extremity, bilateral; N17.9 Acute kidney failure, unspecified; Z66 Do not resuscitate; M06.9 Rheumatoid arthritis, unspecified; I50.9 Heart failure, unspecified; H54.7 Unspecified visual loss; E78.00 Pure hypercholesterolemia, unspecified; I11.0 Hypertensive heart disease with heart failure; E87.5 Hyperkalemia; I87.2 Venous insufficiency (chronic) (peripheral); E86.0 Dehydration; K59.09 Other constipation; M54.9 Dorsalgia, unspecified; G89.29 Other chronic pain; Z79.01 Long term (current) use of anticoagulants; Z98.49 Cataract extraction status, unspecified eye; Z90.710 Acquired absence of both cervix and uterus; Z98.890 Other specified postprocedural states; Z79.899 Other long term (current) drug therapy; Z96.649 Presence of unspecified artificial hip joint; Z88.0 Allergy status to penicillin
CPT/HCPCS: 36415; 74177; 80048; 81001; 85025; 86580; 87070; 87075; 87205; 97110-GP; 97165-GO; 97530-GO; 97530-GP; 97535-GO; 99305; 99309; 99315; A0425; A0428; A9270-GY; J1642; J2185; J7030; Q9967

== ENCOUNTER 2025-05-21 13:49 | Inpatient (IN) | payer MEDICARE, BC ==
[2025-05-21] MEDS ORDERED: DICLOFENAC SODIUM TOP PRN (15:54)
[2025-05-21] MEDS ORDERED: Ondansetron 4 MG Tab.DIS PO PRN (15:58)
[2025-05-21] MEDS: Lidocaine 4% Top Soln LTA 4 ML Syringe Kit TOP SCH (19:44)
[2025-05-21] MEDS: Aluminum Hydroxide/Magnesium Hydroxide/Simethicone 355 ML Bottle PO SCH (19:45)
[2025-05-21] MEDS: Tuberculin, PPD 5 Units/0.1 ML 1 ML MDV IDERM ONE (21:32)
[2025-05-22] MEDS: Acetaminophen/HYDROcodone 325-5 MG Tab PO PRN (05:18)
[2025-05-22] MEDS ORDERED: DICLOFENAC 1% TOP SCH (08:00)
[2025-05-22] MEDS ORDERED: Magnesium Hydroxide 400 MG/5 ML Susp 30 ML Cup PO SCH (08:00)
[2025-05-22] MEDS: Lactobacillus Acidophilus/Lactobacillus Sporogenes (Probiotic) Tab PO SCH (08:54)
[2025-05-22] MEDS: Potassium Chloride 10 MEQ Tab.ER PO SCH (08:54)
[2025-05-22] MEDS: DICLOFENAC 1% TOP SCH (09:01)
[2025-05-29 12:17] LABS: BLOOD UREA NITROGEN,BUN 16.0 mg/dL (8-26); CARBON DIOXIDE,CO2 26.4 mmol/L (21.0-32.0); CHLORIDE,CL 105.0 mmol/L (98-107); CREATININE 0.56 mg/dL (0.55-1.02); EST CRCL DRUG DOSING (CG) 65.17 mL/min; ESTIMATED GFR 92.0 mL/min (>60); GLUCOSE RANDOM 112.0 mg/dL (74-100); POTASSIUM,K 4.3 mmol/L (3.5-5.1); SODIUM,NA 139.0 mmol/L (136-145)
[2025-05-29 18:29] VITALS: BP 136/66; PULSE 98
== END 2025-05-29 18:05 | disposition home or self-care (01) | DRG 392 ==
LOC: LB.MS 14:04
PROVIDERS: ADMIT Family Medicine; ATTEND Family Medicine
DX: K57.92 Diverticulitis of intestine, part unspecified, without perforation or abscess without bleeding (principal); M06.9 Rheumatoid arthritis, unspecified; I50.9 Heart failure, unspecified; Z66 Do not resuscitate; H54.7 Unspecified visual loss; E78.00 Pure hypercholesterolemia, unspecified; K59.09 Other constipation; M19.90 Unspecified osteoarthritis, unspecified site; M54.9 Dorsalgia, unspecified; G89.29 Other chronic pain; Z96.642 Presence of left artificial hip joint; I87.2 Venous insufficiency (chronic) (peripheral); I11.0 Hypertensive heart disease with heart failure; S81.812A Laceration without foreign body, left lower leg, initial encounter; S81.811A Laceration without foreign body, right lower leg, initial encounter; S71.002D Unspecified open wound, left hip, subsequent encounter; Z86.718 Personal history of other venous thrombosis and embolism; Z79.899 Other long term (current) drug therapy; Z98.49 Cataract extraction status, unspecified eye; Z90.710 Acquired absence of both cervix and uterus; Z98.890 Other specified postprocedural states; Z79.52 Long term (current) use of systemic steroids; Z79.01 Long term (current) use of anticoagulants; Z88.0 Allergy status to penicillin; X58.XXXA Exposure to other specified factors, initial encounter; Y92.89 Other specified places as the place of occurrence of the external cause
CPT/HCPCS: 36415; 80048; 86580; 97110-GP; 97116-GP; 97162-GP; 97165-GO; 97530-GO; 97530-GP; 97535-GO; 99305; 99308; 99315; A9270-GY; J7512

== ENCOUNTER 2025-10-03 10:51 | Emergency (ER) | payer MEDICARE, BC ==
[2025-10-03] MEDS: Ketorolac 30 MG/ML SDV IM ONE (12:21)
[2025-10-03 12:53] VITALS: BP 142/74; PULSE 79
== END 2025-10-03 12:30 | disposition home or self-care (01) ==
LOC: LB.ED 10:51
DX: M25.562 Pain in left knee (principal); I10 Essential (primary) hypertension; E78.00 Pure hypercholesterolemia, unspecified; Z79.899 Other long term (current) drug therapy; Z88.0 Allergy status to penicillin
CPT/HCPCS: 96372; 99283; J1885

== ENCOUNTER 2025-10-06 16:32 | Inpatient (IN) | payer MEDICARE, BC ==
[2025-10-06] MEDS ORDERED: Sodium Chloride 0.9% 10 ML Syringe FLUSH PRN (16:36)
[2025-10-06 16:57] LABS: BASOPHILS ABSOLUTE AUTO 0.05 K/uL (0.02-0.10); BASOPHILS PERCENT AUTO 0.7 % (0.0-0.5); EOSINOPHILS ABSOLUTE AUTO 0.09 K/uL (0.04-0.40); EOSINOPHILS PERCENT AUTO 1.2 % (1.0-5.0); LYMPHOCYTES ABSOLUTE AUTO 0.92 K/uL (1.50-4.00); LYMPHOCYTES PERCENT AUTO 12.3 % (20.0-40.0); MEAN PLATELET VOLUME 8.4 fL (6.0-10.0); MONOCYTES ABSOLUTE AUTO 0.66 K/uL (0.20-0.80); MONOCYTES PERCENT AUTO 8.9 % (3.0-10.0); NEUTROPHILS ABSOLUTE AUTO 5.73 K/uL (2.00-7.50); NEUTROPHILS PERCENT AUTO 76.9 % (45.0-70.0); PLATELET COUNT,PLT 374 K/uL (150-500); RED BLOOD CELL COUNT 3.08 M/uL (3.80-5.80); RED CELL DISTRIBUTION WIDTH 16.7 % (11.0-16.0); WHITE BLOOD CELL COUNT,WBC 7.5 K/uL (4.0-11.0)
[2025-10-06 17:25] LABS: BLOOD UREA NITROGEN,BUN 17.0 mg/dL (8-26); CARBON DIOXIDE,CO2 27.8 mmol/L (21.0-32.0); CHLORIDE,CL 109.0 mmol/L (98-107); CREATININE 0.95 mg/dL (0.55-1.02); EST CRCL DRUG DOSING (CG) 38.42 mL/min; ESTIMATED GFR 60.0 mL/min (>60); GLUCOSE RANDOM 127.0 mg/dL (74-100); POTASSIUM,K 3.2 mmol/L (3.5-5.1); SODIUM,NA 146.0 mmol/L (136-145)
[2025-10-06] MEDS: Sennosides/Docusate Sodium 50-8.6 MG Tab PO PRN (22:45)
[2025-10-07] MEDS: Acetaminophen/HYDROcodone 325-5 MG Tab PO PRN (02:48)
[2025-10-07] MEDS ORDERED: prednisoLONE Syrup 5 MG/5 ML 120 ML Bottle PO SCH (08:00)
[2025-10-07] MEDS ORDERED: PANTOPRAZOLE 20 MG PO SCH ×2 (08:00)
[2025-10-07 08:30] LABS: MEAN PLATELET VOLUME 8.3 fL (6.0-10.0); PLATELET COUNT,PLT 348.0 K/uL (150-500); RED BLOOD CELL COUNT 3.06 M/uL (3.80-5.80); RED CELL DISTRIBUTION WIDTH 16.8 % (11.0-16.0); WHITE BLOOD CELL COUNT,WBC 8.7 K/uL (4.0-11.0)
[2025-10-07 08:55] LABS: BLOOD UREA NITROGEN,BUN 13.0 mg/dL (8-26); CARBON DIOXIDE,CO2 30.2 mmol/L (21.0-32.0); CHLORIDE,CL 105.0 mmol/L (98-107); CREATININE 0.81 mg/dL (0.55-1.02); EST CRCL DRUG DOSING (CG) 45.06 mL/min; ESTIMATED GFR 73.0 mL/min (>60); GLUCOSE RANDOM 89.0 mg/dL (74-100); SODIUM,NA 144.0 mmol/L (136-145)
[2025-10-07 09:03] LABS: POTASSIUM,K 2.8 mmol/L (3.5-5.1)
[2025-10-07] MEDS: Potassium Chloride 20 MEQ Tab.ER PO SCH (10:53)
[2025-10-08 01:10] VITALS: BP 171/78; PULSE 91
== END 2025-10-08 02:20 | DRG 920 ==
LOC: LB.ED 16:32 → LB.MS 20:41
PROVIDERS: ADMIT Surgery; ATTEND Surgery
DX: S70.02XA Contusion of left hip, initial encounter (principal); M96.840 Postprocedural hematoma of a musculoskeletal structure following a musculoskeletal system procedure; D84.9 Immunodeficiency, unspecified; H54.7 Unspecified visual loss; E78.00 Pure hypercholesterolemia, unspecified; X58.XXXA Exposure to other specified factors, initial encounter; I10 Essential (primary) hypertension; K59.09 Other constipation; Z96.642 Presence of left artificial hip joint; M06.9 Rheumatoid arthritis, unspecified; Z98.49 Cataract extraction status, unspecified eye; Z90.710 Acquired absence of both cervix and uterus; Z88.0 Allergy status to penicillin; Z79.899 Other long term (current) drug therapy; Z79.891 Long term (current) use of opiate analgesic; Z98.890 Other specified postprocedural states
CPT/HCPCS: 36415; 73700-LT; 76881-LT; 80048; 85025; 85027; 85651; 86140; 87070; 87205; 96374; 99284-25; A0425; A0428; A9270-GY; J2270; J7510; J7512

== ENCOUNTER 2025-10-19 14:16 | Inpatient (IN) | payer MEDICARE, BC ==
[2025-10-19] MEDS ORDERED: DICLOFENAC SODIUM TOP PRN (15:12)
[2025-10-19] MEDS: Tuberculin, PPD 5 Units/0.1 ML 1 ML MDV IDERM ONE (18:19)
[2025-10-19] MEDS: Acetaminophen/HYDROcodone 325-5 MG Tab PO PRN (19:26)
[2025-10-20] MEDS ORDERED: PANTOPRAZOLE 20 MG PO SCH (08:00)
[2025-10-20] MEDS ORDERED: PREDNISOLONE 5 MG PO SCH (08:00)
[2025-10-20 08:56] LABS: MEAN PLATELET VOLUME 9.0 fL (6.0-10.0); PLATELET COUNT,PLT 531 K/uL (150-500); RED BLOOD CELL COUNT 3.01 M/uL (3.80-5.80); RED CELL DISTRIBUTION WIDTH 16.1 % (11.0-16.0); WHITE BLOOD CELL COUNT,WBC 9.8 K/uL (4.0-11.0)
[2025-10-20 09:15] LABS: A/G RATIO 0.7 (0.8-2.0); ALANINE AMINOTRANSFERASE,ALT 12.0 U/L (12-78); ASPARTATE AMNIOTRANSFERASE,AST 19.0 U/L (15-37); BILIRUBIN TOTAL 0.2 mg/dL (0.0-1.0); BLOOD UREA NITROGEN,BUN 19.0 mg/dL (8-26); CARBON DIOXIDE,CO2 26.9 mmol/L (21.0-32.0); CREATININE 0.72 mg/dL (0.55-1.02); EST CRCL DRUG DOSING (CG) 50.69 mL/min; ESTIMATED GFR 84.0 mL/min (>60); GLUCOSE RANDOM 93.0 mg/dL (74-100); POTASSIUM,K 3.8 mmol/L (3.5-5.1); PROTEIN TOTAL,TP 5.4 g/dL (6.4-8.2)
[2025-10-20 09:34] LABS: BASOPHILS PERCENT AUTO 0.4 % (0.0-0.5); EOSINOPHILS PERCENT AUTO 1.5 % (1.0-5.0); LYMPHOCYTES PERCENT AUTO 13.9 % (20.0-40.0); MONOCYTES PERCENT AUTO 9.2 % (3.0-10.0); NEUTROPHILS PERCENT AUTO 75.0 % (45.0-70.0)
[2025-10-20 09:35] LABS: BASOPHILS ABSOLUTE AUTO 0.04 K/uL (0.02-0.10); EOSINOPHILS ABSOLUTE AUTO 0.15 K/uL (0.04-0.40); LYMPHOCYTES ABSOLUTE AUTO 1.36 K/uL (1.50-4.00); MONOCYTES ABSOLUTE AUTO 0.90 K/uL (0.20-0.80); NEUTROPHILS ABSOLUTE AUTO 7.33 K/uL (2.00-7.50)
[2025-10-20 10:27] LABS: CHLORIDE,CL 105.0 mmol/L (98-107); SODIUM,NA 143.0 mmol/L (136-145)
[2025-10-20 13:39] LABS: APPEARANCE,URINE CLEAR (CLEAR); GLUCOSE,URINE NEGATIVE (NEGATIVE); OCCULT BLOOD,URINE NEGATIVE (NEGATIVE)
[2025-10-20 13:50] LABS: EPITHELIAL CELLS,URINE MODERATE /HPF; SQUAMOUS EPITHELIAL CELLS,UR MODERATE /HPF
[2025-10-20 13:51] LABS: UROTHELIAL CELLS,URINE FEW /HPF
[2025-10-21] MEDS: Acetaminophen/HYDROcodone 325-5 MG Tab PO ONE (00:03)
[2025-10-22] MEDS ORDERED: Magnesium Hydroxide 400 MG/5 ML Susp 473 ML Bottle PO PRN (09:43)
[2025-10-22] MEDS ORDERED: Magnesium Hydroxide 400 MG/5 ML Susp 30 ML Cup PO PRN (10:35)
[2025-10-22] MEDS: Cholecalciferol (Vitamin D3) 2,000 Unit Cap PO SCH (10:52)
[2025-10-22] MEDS ORDERED: Non-Formulary Medication 1 Each (Cefazolin [Ancef] 2 GM/50 ML Bag) IV SCH (14:00)
[2025-10-22] MEDS: Acetaminophen/HYDROcodone 325-5 MG Tab PO PRN (18:39)
[2025-10-22] MEDS ORDERED: Non-Formulary Medication 1 Each (Carvedilol [Carvedilol] 12.5 MG Tablet) PO SCH (20:00)
[2025-10-26] MEDS: Trolamine Salicylate/Aloe Vera 10% Crm 85 GM Tube TOP PRN (03:37)
[2025-10-26 07:56] VITALS: BP 140/67; PULSE 79
[2025-10-26 08:03] LABS: MEAN PLATELET VOLUME 8.1 fL (6.0-10.0); PLATELET COUNT,PLT 486.0 K/uL (150-500); RED BLOOD CELL COUNT 3.1 M/uL (3.80-5.80); RED CELL DISTRIBUTION WIDTH 16.3 % (11.0-16.0); WHITE BLOOD CELL COUNT,WBC 7.3 K/uL (4.0-11.0)
[2025-10-26 08:37] LABS: BLOOD UREA NITROGEN,BUN 11.0 mg/dL (8-26); CARBON DIOXIDE,CO2 26.5 mmol/L (21.0-32.0); CHLORIDE,CL 110.0 mmol/L (98-107); CREATININE 0.61 mg/dL (0.55-1.02); EST CRCL DRUG DOSING (CG) 62.46 mL/min; ESTIMATED GFR 90.0 mL/min (>60); GLUCOSE RANDOM 90.0 mg/dL (74-100); POTASSIUM,K 4.3 mmol/L (3.5-5.1); SODIUM,NA 145.0 mmol/L (136-145)
== END 2025-10-26 13:48 | DRG 948 ==
LOC: LB.MS 14:16 → UNDOADMIN 14:16 → LB.MS 15:11
PROVIDERS: ADMIT Physician Assistant; ATTEND Physician Assistant
DX: R53.81 Other malaise (principal); T84.89XA Other specified complication of internal orthopedic prosthetic devices, implants and grafts, initial encounter; B95.8 Unspecified staphylococcus as the cause of diseases classified elsewhere; S21.001A Unspecified open wound of right breast, initial encounter; Z66 Do not resuscitate; T14.8XXA Other injury of unspecified body region, initial encounter; H54.7 Unspecified visual loss; E78.00 Pure hypercholesterolemia, unspecified; I10 Essential (primary) hypertension; M19.90 Unspecified osteoarthritis, unspecified site; M06.9 Rheumatoid arthritis, unspecified; Z96.649 Presence of unspecified artificial hip joint; S70.02XA Contusion of left hip, initial encounter; D50.0 Iron deficiency anemia secondary to blood loss (chronic); Z98.49 Cataract extraction status, unspecified eye; Z88.0 Allergy status to penicillin; Z79.899 Other long term (current) drug therapy; Z79.2 Long term (current) use of antibiotics; Z79.1 Long term (current) use of non-steroidal anti-inflammatories (NSAID); Z90.710 Acquired absence of both cervix and uterus
CPT/HCPCS: 36415; 73700-LT; 80048; 80053; 81001; 85025; 85027; 86580; 97110-GP; 97162-GP; 97166-GO; 97530-GO; 97530-GP; A0425; A0428; A9270-GY; J0690; J1650; J7512